=== PATIENT | male | born 1965 | race African-American/Black ===

== ENCOUNTER 2019-11-20 01:37 | Emergency (ER) | payer MEDICARE, MEDICAID ==
[~2019-11-20] VITALS: Ht 188 cm; Wt 85.5 kg
[~2019-11-20 01:37] MED LIST: ANAPROX DS550 MG PO; BACLOFEN10 MG PO; COLACE100 MG PO; DULCOLAX10 MG/SUPP; GRANULEX SPR113.4 GM TP; HEPARIN SOD5000 U/ML SQ; NAPROSYN500 MG PO; NAPROXEN; PROTONIX20 MG PO; PROTONIX40 MG PO; REMERON30 MG PO; ZOFRAN ODT4 MG/UDTAB; [UNRECOGNIZED DRUG - OTHER] TP
[2019-11-20 01:39] VITALS: Ht 188 cm; Wt 85.5 kg
[2019-11-20] MEDS ORDERED: DIOVAN160 MG PO (01:41)
[2019-11-20] MEDS ORDERED: PROSCAR5 MG PO (01:42)
[2019-11-20] MEDS ORDERED: CARAFATE1 G PO (01:42)
[2019-11-20 04:03] VITALS: BP 123/70
== END 2019-11-20 04:03 | disposition home or self-care (01) ==
LOC: D.ER 01:37
DX: S01.01XA Laceration without foreign body of scalp, initial encounter (principal); W05.0XXA Fall from non-moving wheelchair, initial encounter